=== PATIENT | male | born 1975 | race Caucasian/White ===

== ENCOUNTER 2020-05-26 22:06 | Inpatient (IN) | payer BC, OTHER ==
[2020-05-26] MEDS ORDERED: Nitroglycerin 0.4 MG TAB (25 Tab Bottle) SL PRN (22:58)
[2020-05-26 23:42] LABS: Troponin I 0.133 ng/mL (< 0.028)
[2020-05-26 23:48] VITALS: BMI 28.7
--- NOTE | 2020-05-26 23:58 | PDOC.EVN ---
Event Note - Event Note Event Note: [id number] HP
[2020-05-26] MEDS ORDERED: Enoxaparin Sodium 80 MG/0.8 ML SYRINGE SC SCH (23:59)
[2020-05-27] MEDS ORDERED: Acetaminophen 325 MG TAB PO PRN (00:14)
[2020-05-27] MEDS ORDERED: Acetaminophen 500 MG TAB PO SCH (00:15)
--- NOTE | 2020-05-27 01:32 | HP ---
CHIEF COMPLAINT: Chest pain. HISTORY OF PRESENT ILLNESS: Mr. Morales is a 45-year-old male with past medical history of hypertension, on antihypertensives; hypothyroidism, presented to an outside emergency room with chest pain that has been going on for the last few days. The patient started exercising 2 weeks ago and he runs about 1.5 miles daily. For the last 3 days, he noticed chest pain/pressure after running, relieved with rest. In the emergency room, initial workup including EKG showed mild upsloping in the ST segments. ED physician discussed the case with Dr. Reis, feather drying machine operator, who advised to bring the patient for further cardiac workup. Initial troponin 0.04, repeat troponin 0.08. Denies shortness of breath, cough, or wheezing. The patient was given aspirin and also he was given sublingual nitroglycerin with resolving of the chest pain. The patient has been admitted to the hospital for further management. PAST MEDICAL HISTORY: 1. Hypertension. 2. Hypothyroidism. PAST SURGICAL HISTORY: Reviewed and not pertinent. SOCIAL HISTORY: Denies smoking. Drinks alcohol socially. FAMILY HISTORY: Mother had a coronary artery bypass graft surgery in the 50s. ALLERGIES: NO KNOWN ALLERGIES. HOME MEDICATIONS: Please see home medication reconciliation form for updated medications. REVIEW OF SYSTEMS: Review of 14 systems negative except what is mentioned in history of present illness. PHYSICAL EXAMINATION: GENERAL: The patient is awake, alert, does not appear to be in acute distress. VITAL SIGNS: Blood pressure 129/80, pulse is 66, respiratory rate is 20, temperature 99.3. HEAD: Normocephalic, atraumatic. NECK: Supple. No JVD. CHEST: Fair bilateral air entry. HEART: S1, S2. Regular. ABDOMEN: Soft, nontender. Bowel sounds present. NEUROLOGIC: Awake, alert, and oriented x3. PSYCHIATRIC: Normal mood. EXTREMITIES: No clubbing, no cyanosis. LABORATORY DATA: As mentioned above in history of present illness. ASSESSMENT AND PLAN: 1. Chest pain. 2. Chest pain, rule out acute coronary syndrome. 3. Indeterminate troponin. 4. Hypertension. 5. Family history of coronary artery disease. PLAN: 1. Admit to telemetry. 2. Telemetry monitoring. 3. Aspirin. 4. Serial troponins. 5. Cardiology is consulted for evaluation and further management. 6. We will keep the patient n.p.o. after midnight, reassess in a.m. after the patient is seen by Cardiology. 7. Reconcile home medications. 8. DVT prophylaxis as appropriate. 9. Expected length of stay at least 1 midnight if patient is stable and further workup negative. Job ID: [id number]
[2020-05-27 04:51] LABS: Cardiac Risk 6.9 (Less than 4.5)
[2020-05-27] MEDS ORDERED: Enoxaparin Sodium 100 MG/ML SYRINGE SC SCH (09:00)
[2020-05-27] MEDS ORDERED: Aspirin 325 mg Enteric Coated Tablet PO SCH (09:00)
[2020-05-27] MEDS: Sodium Chloride 0.9% 1,000 ML IV SCH ×2 (09:37→20:15)
[2020-05-27 10:11] LABS: Troponin I 0.177 ng/mL (< 0.028)
[2020-05-27 10:53] LABS: SARS-CoV-2 NAA Rapid Test Not Detected (NotDetected)
[2020-05-27 12:04] LABS: #Basophils 0.1 thou/uL (0.0-0.2); #Eosinphils 0.1 thou/uL (0.0-0.7); #Lymphocytes 1.9 thou/uL (1.20-3.40); #Monocytes 0.3 thou/uL (0.11-0.59); #Neutrophils 3.4 thou/uL (1.40-6.50); %Basophils 0.9 % (0.0-1.0); %Eosinophils 1.6 % (0.0-10.0); %Lymphocytes 32.4 % (21.0-51.0); %Monocytes 5.9 % (0.0-10.0); %Neutrophils 59.4 % (42.0-75.0); Mean Corpuscular HGB CONC 35.2 g/dL (32.0-36.0); Mean Corpuscular Hemoglobin 32.2 pg (27.0-31.0); Mean Corpuscular Volume 91.5 fL (78.0-98.0); Mean Platelet Volume 7.3 fL (7.4-10.4); Platelet Count 182 thou/uL (130-400); RBC Distribution Width 12.4 % (11.5-14.5); Red Blood Cell (RBC) Count 4.66 mill/uL (4.70-6.10); White Blood Cell (WBC) Count 5.8 thou/uL (4.8-10.8)
[2020-05-27 12:24] LABS: ALT (SGPT) 32 U/L (8-55); AST (SGOT) 23 U/L (5-34); Albumin 4.2 g/dL (3.5-5.0); Alkaline Phosphatase 24 U/L (40-110); Anion Gap 11 mmol/L (10-20); BUN (Urea Nitrogen) 23 mg/dL (8.9-20.6); Bilirubin, Total 0.9 mg/dL (0.2-1.2); Calc. Creatinine Clearance 85 mL/min (70-130); Calcium 8.6 mg/dL (7.8-10.44); Carbon Dioxide 29 mmol/L (22-29); Chloride 104 mmol/L (98-107); Estimated GFR-MDRD 56; Globulin 2.8 g/dL (2.4-3.5); Glucose 97 mg/dL (70-105); Potassium 3.6 mmol/L (3.5-5.1); Sodium 140 mmol/L (136-145)
--- NOTE | 2020-05-27 12:38 | PDOC.BPN ---
- Brief Progress Note Encounter Date: 05/27/20 The patient denies any recurrent chest pain this morning. Troponin levels were trending up overnight. Cardiology planning cardiac cath today.
[2020-05-27] MEDS ORDERED: Verapamil 5 MG/2 ML VIAL ONE (13:16)
[2020-05-27] MEDS ORDERED: Heparin 10,000 UNITS/ 10 ML VIAL ONE (13:16)
[2020-05-27] MEDS ORDERED: Nitroglycerin 100MG/250ML BOT 250 ML ONE (13:16)
[2020-05-27] MEDS ORDERED: Fentanyl 100 MCG/2 ML VIAL ONE (13:54)
[2020-05-27] MEDS ORDERED: Midazolam HCl 2 mg/2 ml Vial ONE (13:54)
[2020-05-27] MEDS ORDERED: TICAGRELOR 90 MG TABLET ONE (14:32)
[2020-05-27] MEDS ORDERED: Iopamidol 370 76% 50 ML VIAL FS ONE (14:53)
[2020-05-27] MEDS ORDERED: Iopamidol 370 76% 100 ML VIAL ONE (14:53)
[2020-05-27] MEDS ORDERED: Morphine 2 MG/ML VIAL SLOW IVP PRN (14:56)
[2020-05-27] MEDS: TICAGRELOR 90 MG TABLET PO SCH (20:15)
--- NOTE | 2020-05-27 20:33 | CON ---
DATE OF CONSULTATION: 05/27/2020 REASON FOR CONSULTATION: Non-STEMI. HISTORY OF PRESENT ILLNESS: Mr. Morales is a pleasant 45-year-old white gentleman who comes to the hospital for chest pain. He has described for the last few months episodes of chest tightness when he runs. He usually runs about a mile every day. He is actually trying to get in shape and seems to be an athletic gentleman. He would get chest tightness in the midsternal area that would only get better with rest and it was very predictable amount of exertion that it took to get it. He had worsening of his chest pain, so he decided to come in for further evaluation. Cardiology is being consulted as his symptoms are concerning for angina. On my evaluation, Mr. Morales is pain free. PAST MEDICAL HISTORY: 1. Hypertension. 2. Hypothyroidism. PAST SURGICAL HISTORY: None. SOCIAL HISTORY: Social alcohol use. No tobacco or drugs. OUTPATIENT MEDICATIONS: Lisinopril/hydrochlorothiazide 20/12.5 mg two tablets a day. ALLERGIES: NO KNOWN DRUG ALLERGIES. FAMILY HISTORY: Mother had coronary artery disease and had to have bypass surgery in her late 60s, not in her 50s, but in her late 60s. REVIEW OF SYSTEMS: A 12-point review of systems was done and was found to be negative other than stated in the History of Present Illness. PHYSICAL EXAMINATION: VITAL SIGNS: Temperature 98.2, pulse 69, respiratory rate 16, sat 95% on room air, and blood pressure 125/83. GENERAL: Awake, alert, and oriented x3. No distress. HEENT: Normocephalic, atraumatic. NECK: Supple. LUNGS: Clear. CARDIOVASCULAR: S1, S2. No S3 or S4. No murmurs. No rubs. ABDOMEN: Soft. Positive bowel sounds. EXTREMITIES: No edema. SKIN: Warm and dry. LABORATORY DATA: Laboratory work was reviewed. CBC was reviewed. CMP was reviewed. BUN of 23, creatinine 1.38. Serologies: COVID-19 PCR was not detected. ASSESSMENT: 1. [id number] myocardial infarction. 2. Hypertension. PLAN: Mr. Morales is certainly having symptoms consistent with angina and mildly elevated troponin more than likely high likelihood of coronary artery disease. I spoke with him at length with risks and benefits of left heart catheterization for further risk stratification. Risks included, but not limited to stroke, DE, , bleeding, need for blood transfusion, limb loss, organ loss, renal dysfunction from contrast, allergic reactions to contrast. The patient understands verbalized understanding of this and agrees to proceed. Drug-eluting stents if needed. Further recommendations per results of coronary angiogram. Job ID: [id number]
[2020-05-27] MEDS ORDERED: Atorvastatin Calcium 20 MG TAB PO SCH (21:00)
[2020-05-27 21:40] LABS: Troponin I 0.352 ng/mL (< 0.028)
[2020-05-28 04:30] LABS: #Basophils 0.1 thou/uL (0.0-0.2); #Eosinphils 0.1 thou/uL (0.0-0.7); #Lymphocytes 1.7 thou/uL (1.20-3.40); #Monocytes 0.3 thou/uL (0.11-0.59); #Neutrophils 3.8 thou/uL (1.40-6.50); %Basophils 0.9 % (0.0-1.0); %Eosinophils 1.9 % (0.0-10.0); %Lymphocytes 28.5 % (21.0-51.0); %Monocytes 5.4 % (0.0-10.0); %Neutrophils 63.3 % (42.0-75.0); Hemoglobin 14.2 g/dL (14.0-18.0); Mean Corpuscular HGB CONC 35.2 g/dL (32.0-36.0); Mean Corpuscular Hemoglobin 32.4 pg (27.0-31.0); Mean Corpuscular Volume 92.2 fL (78.0-98.0); Mean Platelet Volume 7.6 fL (7.4-10.4); Platelet Count 162 thou/uL (130-400); RBC Distribution Width 12.2 % (11.5-14.5); Red Blood Cell (RBC) Count 4.39 mill/uL (4.70-6.10)
[2020-05-28 05:04] LABS: ALT (SGPT) 30 U/L (8-55); AST (SGOT) 22 U/L (5-34); Albumin 3.7 g/dL (3.5-5.0); Alkaline Phosphatase 22 U/L (40-110); Anion Gap 12 mmol/L (10-20); BUN (Urea Nitrogen) 21 mg/dL (8.9-20.6); Bilirubin, Total 0.7 mg/dL (0.2-1.2); Calc. Creatinine Clearance 93 mL/min (70-130); Calcium 8.3 mg/dL (7.8-10.44); Carbon Dioxide 22 mmol/L (22-29); Chloride 108 mmol/L (98-107); Estimated GFR-MDRD 62; Globulin 2.6 g/dL (2.4-3.5); Glucose 100 mg/dL (70-105); Potassium 3.8 mmol/L (3.5-5.1); Protein, Total 6.3 g/dL (6.0-8.3); Sodium 138 mmol/L (136-145)
[2020-05-28] MEDS: Sodium Chloride 0.9% 1,000 ML IV SCH ×3 (08:24→15:30)
[2020-05-28] MEDS: TICAGRELOR 90 MG TABLET PO SCH (08:25)
[2020-05-28] MEDS ORDERED: Aspirin Chewable 81 MG TAB PO SCH (09:00)
[2020-05-28 10:27] LABS: CKMB 3.9 ng/mL (0-6.6)
--- NOTE | 2020-05-28 15:28 | PDOC.CPN ---
- Subjective Date: 05/28/20 Time: 15:28 Interval history: He is doing very well. No more chest pain. - Review of Systems General: denies: fever/chills, weight/appetite/sleep changes, night sweats, fatigue Respiratory: denies: cough, congestion, shortness of breath, exercise intolerance Cardiovascular: denies: chest pain, palpitation, edema, paroxysmal nocturnal dyspnea, orthopnea Gastrointestinal: denies: nausea, vomiting, diarrhea, constipation, abd pain, GI bleeding Musculoskeletal: denies: pain, tenderness, stiffness, swelling, arthritis/arthralgias Neurological: denies: numbness, syncope, seizure, weakness - Objective Allergies/Adverse Reactions: Allergies Allergy/AdvReac Type Severity Reaction Status Date / Time No Known Allergies Allergy Verified 05/26/20 23:53 Visit Medications: Current Medications Acetaminophen (Acetaminophen 325 Mg Tab) 650 mg PO Q4H PRN PRN Reason: Headache/Fever/Mild Pain (1-3) Last Admin: 05/28/20 09:39 Dose: 650 mg Documented by: Aspirin (Aspirin Chewable 81 Mg Tab) 81 mg PO DAILY [facility] Last Admin: 05/28/20 08:25 Dose: 81 mg Documented by: Atorvastatin Calcium (Atorvastatin Calcium 20 Mg Tab) 20 mg PO HS [facility] Last Admin: 05/27/20 20:15 Dose: 20 mg Documented by: Sodium Chloride (Normal Saline 0.9%) 1,000 mls @ 100 mls/hr IV .Q10H [facility] Last Admin: 05/28/20 08:24 Dose: 1,000 mls Documented by: Morphine Sulfate (Morphine 2 Mg/Ml Vial) 2 mg SLOW IVP Q4H PRN PRN Reason: Moderate Chest Pain (4-6) Nitroglycerin (Nitroglycerin 0.4 Mg Tab (25 Tab Bottle)) 0.4 mg SL Q5MIN PRN PRN Reason: Chest Pain Sodium Chloride (Flush - Normal Saline 10 Ml Syringe) 10 ml IVF Q12HR [facility] Last Admin: 05/28/20 08:29 Dose: Not Given Documented by: Ticagrelor (Ticagrelor 90 Mg Tablet) 90 mg PO BID [facility] Last Admin: 05/28/20 08:25 Dose: 90 mg Documented by: Vital Signs & Weight: Vital Signs Temp Pulse Pulse Pulse Resp BP BP 05/28/20 13:14 70 71 122/83 131/88 05/28/20 12:55 99.0 F 65 16 05/28/20 07:05 98.6 F 61 16 05/28/20 05:15 98.4 F 78 18 BP Pulse Ox Pulse Ox Pulse Ox 05/28/20 13:14 98 99 05/28/20 12:55 127/75 96 05/28/20 07:05 124/81 97 05/28/20 05:15 128/76 99 Weight 196 lb - Physical Exam General: alert & oriented x3 HEENT: mucus membranes moist Neck: supple neck Cardiac: regular rate and rhythm Lungs: normal breath sounds Neuro: grossly intact Abdomen: active bowel sounds Extremities: no edema Skin: clear Musculoskeletal: no pain - Labs Result Diagrams: 05/28/20 03:55 05/28/20 03:55 Troponin/CKMB CK-MB (CK-2) 3.9 ng/mL (0-6.6) 05/28/20 09:27 Troponin I 0.530 ng/mL (< 0.028) H* 05/28/20 09:27 - Telemetry Sinus rhythms and dysrhythmias: sinus rhythm - Assessment/Plan Assessment/Plan: 1. NSTEMI 2. CAD 3. S/P PCI to LAD with drug eluting stents. PLAN: - May discharge home. - Will stop his Lisinopril HCTZ and will send home with Lisinopril alone at 10 mg and add Toprol Xl at 12.5 mg daily. - Continue low dose ASA and Brilinta - Statin. - Follow up in the office in 4 weeks. - May discharge home.
[2020-05-28 17:15] VITALS: BP 141/85; TEMP 99.1
[2020-05-29] MEDS ORDERED: Lisinopril 10 MG TAB PO SCH (09:00)
--- NOTE | 2020-05-30 09:39 | DIS ---
DATE OF ADMISSION: 05/26/2020 DATE OF DISCHARGE: 05/28/2020 DISCHARGE DISPOSITION: Home. FOLLOWUP: 1. Follow up with primary care physician, Dr. Britton Del Castillo at [facility] in 1 week. 2. Follow up with Cardiology, Dr. Cui in 2 to 3 weeks. ALLERGIES: NO KNOWN DRUG ALLERGIES. DISCHARGE MEDICATIONS: 1. Aspirin 81 mg daily. 2. Brilinta 90 mg b.i.d. 3. Lipitor 20 mg at bedtime. 4. Toprol-XL 12.5 mg daily. 5. Lisinopril 10 mg daily. 6. Sublingual nitroglycerin as needed. The patient was seen and examined on the day of discharge. Denies any new complaints. No chest pain, shortness of breath, or palpitations. Vital signs on the day of discharge showed temperature of 98.6 with pulse rate of 65, respirations of 16, blood pressure of 124/81 with O2 saturation 97% on room air. BRIEF HOSPITAL COURSE: The patient is a 45-year-old white male with hypertension, presented to the emergency room with chest discomfort on May 26, 2020. He was initially found to have indeterminate troponins. He was kept n.p.o. and was started on antiplatelet agents. The patient was evaluated by Cardiology, Dr. Cui. His troponins continued to rise with a maximum troponin of 0.530. He underwent cardiac catheterization on May 27, 2020, that showed severe proximal LAD. He underwent stent placement in the proximal LAD as well as ostial LAD. Left main was normal. Left circumflex was normal. RCA had 40% stenosis. His echocardiogram showed ejection fraction 60% to 65% with grade 1 of 3 diastolic dysfunction, mild mitral regurgitation, and mild tricuspid regurgitation. He also had mild acute kidney injury with a creatinine of 1.38. His baseline creatinine is unknown. His creatinine on the day of discharge is 1.26. Lisinopril/hydrochlorothiazide has been discontinued. The patient has been started on lisinopril 10 mg daily along with Toprol-XL 12.5 mg daily. He has been cleared by Cardiology for discharge. He was counseled on dual-antiplatelet treatment. FINAL DIAGNOSES: 1. Chest discomfort due to non-ST elevation myocardial infarction. 2. Hypertension. 3. Acute kidney injury versus chronic kidney disease stage 3. 4. Dyslipidemia. Triglycerides were 317 with total cholesterol 215, LDL 121 with HDL 31. 5. History of hypothyroidism. 6. Family history of heart disease. The patient understands the above plan of care. Job ID: [id number]
--- NOTE | 2020-06-01 08:15 | EKG ---
Test Reason : Blood Pressure : / mmHG Vent. Rate : 061 BPM Atrial Rate : 061 BPM P-R Int : 138 ms QRS Dur : 094 ms QT Int : 434 ms P-R-T Axes : 032 047 045 degrees QTc Int : 436 ms Normal sinus rhythm Normal ECG No previous ECGs available Confirmed by RICCO VALDEZ (2) on 06/01/2020 8:15:14 AM Referred By: JORGE Confirmed By:RICCO VALDEZ
== END 2020-05-28 17:10 | disposition home or self-care (01) | DRG 247 ==
LOC: 2NO 22:06 → OBSVTOIN 23:50
PROVIDERS: ADMIT Internal Medicine; ATTEND Internal Medicine
PROC: 027035Z Dilation of Coronary Artery, One Artery with Two Drug-eluting Intraluminal Devices, Percutaneous Approach (ICD-10-PCS; principal; 2020-05-27)
PROC: 4A023N7 Measurement of Cardiac Sampling and Pressure, Left Heart, Percutaneous Approach (ICD-10-PCS; 2020-05-27)
PROC: B2111ZZ Fluoroscopy of Multiple Coronary Arteries using Low Osmolar Contrast (ICD-10-PCS; 2020-05-27)
PROC: B2151ZZ Fluoroscopy of Left Heart using Low Osmolar Contrast (ICD-10-PCS; 2020-05-27)
DX: I21.4 Non-ST elevation (NSTEMI) myocardial infarction (principal); N17.9 Acute kidney failure, unspecified; Z20.828 Contact with and (suspected) exposure to other viral communicable diseases; I12.9 Hypertensive chronic kidney disease with stage 1 through stage 4 chronic kidney disease, or unspecified chronic kidney disease; N18.30 Chronic kidney disease, stage 3 unspecified; E78.5 Hyperlipidemia, unspecified; E03.9 Hypothyroidism, unspecified; I25.10 Atherosclerotic heart disease of native coronary artery without angina pectoris; Z79.899 Other long term (current) drug therapy; Z79.890 Hormone replacement therapy
CPT/HCPCS: 36415; 80053; 80061; 82553; 83735; 84484; 85025; 85347; 92928; 93005; 93010; 93306; 93458; 93798; 94760; 99152; 99153; C1874; C9600; G0378; J1644; J1650; J2250; J3010; Q9967; U0002